=== PATIENT | female | born 1995 | race Caucasian/White ===

== ENCOUNTER 2022-08-08 18:49 | Emergency (ER) | payer OTHER ==
[2022-08-08 18:56] VITALS: BP 132/77; PULSE 77; RESP 18; TEMP 98.6; BMI 27.6
[2022-08-08] MEDS ORDERED: KETOROLAC TROMETHAMINE 30 MG/1 ML VIAL IM ONE (20:34)
[2022-08-08] MEDS ORDERED: LIDOCAINE 5% TOPICAL PATCH TP ONE (20:34)
[2022-08-08] MEDS ORDERED: LIDOCAINE 5% TOPICAL PATCH ONE (20:39)
[2022-08-08] MEDS ORDERED: KETOROLAC TROMETHAMINE 30 MG/1 ML VIAL ONE (20:39)
[2022-08-08] MEDS ORDERED: diazePAM 2 MG TABLET PO ONE (20:41)
[2022-08-08] MEDS ORDERED: diazePAM 2 MG TABLET ONE (20:42)
[2022-08-08] MEDS ORDERED: LIDOCAINE PATCH REMOVAL MC SCH (22:00)
== END 2022-08-08 21:01 | disposition home or self-care (01) ==
LOC: JER 18:49 → JERFT 18:49
PROC: 3E0233Z Introduction of Anti-inflammatory into Muscle, Percutaneous Approach (ICD-10-PCS; principal; 2022-08-08)
DX: M54.31 Sciatica, right side (principal)
CPT/HCPCS: 99284-25